=== PATIENT | male | born 1990 | race African-American/Black ===

== ENCOUNTER 2023-01-20 13:00 | Emergency (ER) | payer MEDICAID, OTHER ==
[~2023-01-20] VITALS: Ht 172.7 cm; Wt 64.0 kg
[2023-01-20 13:07] VITALS: BP 147/85
[2023-01-20 16:17] LABS: BASOPHILS % 0.7 % (0.0-2.0); EOSINOPHILS % 3.3 % (0.0-5.0); HEMATOCRIT. 45.5 % (42.0-52.0); HEMOGLOBIN. 14.7 g/dL (14.0-18.0); LYMPHOCYTES % 51.5 % (20.0-50.0); MEAN CORPUSCULAR HEMOGLOBIN 23.1 pg (28.0-32.0); MEAN CORPUSCULAR VOLUME 71.5 fL (80.0-94.0); MEAN PLATELET VOLUME 8.6 fl (7.4-10.4); MONOCYTES % 6.5 % (2.0-8.0); PLATELET 246 x1000/uL (130-400); RED BLOOD CELL COUNT 6.37 mill/uL (4.7-6.1)
[2023-01-20 16:26] LABS: CHLORIDE 108 mEq/L (98-107)
[2023-01-20] MEDS ORDERED: IBUP-2029 MT (18:00)
== END 2023-01-20 18:22 | disposition home or self-care (01) ==
LOC: ER 13:00
DX: R07.89 Other chest pain (principal)
CPT/HCPCS: 36415; 71045; 80053; 83880; 84484; 85025; 93005; 99285